=== PATIENT | male | born 1965 | race Caucasian/White ===

== ENCOUNTER → 2024-12-14 | Outpatient (CLI) | payer MEDICAID, SELFPAY ==
[2024-12-14 11:45] LABS: Basophils # (Auto) 0.0 Thou/mm3 (0.0-0.2); Basophils % (Auto) 0 % (0-2.5); Eosinophils # (Auto) 0.9 Thou/mm3 (0.0-0.5); Eosinophils % (Auto) 11 % (0-10); Hematocrit 48.0 % (41.0-53.0); Hemoglobin 16.0 g/dL (13.5-16.0); Immature Granulocytes Auto 0.06 Thou/mm3 (0.00-0.00); Lymphocytes # (Auto) 2.7 Thou/mm3 (1.0-4.8); Lymphocytes % (Auto) 36 % (10-50); Mean Corpuscular HGB Conc 33.3 g/dl (31.0-37.0); Mean Corpuscular Hemoglobin 28.3 pg (25.0-35.0); Mean Corpuscular Volume 85 fL (80-100); Monocytes # (Auto) 0.6 Thou/mm3 (0.0-0.8); Monocytes % (Auto) 7 % (0-12); Neutrophils # (Auto) 3.3 Thou/mm3 (1.8-7.7); Neutrophils % (Auto) 44 % (37-80); Nucleated Red Blood Cell # 0.00 Thou/mm3 (0.00-0.00); Nucleated Red Blood Cell % 0 /100 WBC (0); Platelet Count 142 Thou/mm3 (140-440); RDW Standard Deviation 42.7 fL (35.1-43.9); Red Blood Count 5.66 Miln/mm3 (4.50-5.90); White Blood Count 7.5 Thou/mm3 (3.8-10.6)
[2024-12-14 12:06] LABS: Alanine Aminotransferase 26 U/L (10-49); Albumin, Serum 4.6 gm/dL (3.5-5.0); Albumin/Globulin Ratio 1.7 (1.2-2.2); Alkaline Phosphatase 48 U/L (46-116); Anion Gap 10 (7-16); Aspartate Amino Transferase 21 U/L (0-34); BUN/Creatinine Ratio 18 Ratio (12-20); Bilirubin,Total 1.0 mg/dL (0.3-1.2); Blood Urea Nitrogen 14 mg/dL (9-23); Calcium 8.9 mg/dL (8.3-10.6); Calcium (Corrected) 8.9 mg/dL (8.5-10.1); Carbon Dioxide 26.4 mMol/L (20.0-31.0); Chloride 106 mMol/L (98-107); Creatinine (Component) 0.8 mg/dL (0.6-1.3); Globulin 2.7 gm/dL (2.3-3.5); Glucose 118 mg/dL (74-106); Osmolality,Calculated 284 (275-295); Potassium 4.2 mMol/L (3.4-5.1); Sodium 142 mMol/L (136-145); Total Protein 7.3 gm/dL (5.7-8.2); eGFR > 60 See Note
== END | disposition home or self-care (01) ==
LOC: COPL 11:18
PROVIDERS: PCP Family Medicine; Referring Provider Internal Medicine Hematology & Oncology; Visit Provider Internal Medicine Hematology & Oncology
DX: D72.10 Eosinophilia, unspecified (principal)
CPT/HCPCS: 36415; 80053; 85025

== ENCOUNTER 2024-12-28 13:19 | Outpatient (RCR) | payer MEDICAID, SELFPAY ==
--- NOTE | 2024-11-30 15:49 | CTCCONSULT_ITS ---
Patient: MARY EDWARD : 1965 MR#: [id number] Page 2 of 3 CONSULTATION NOTE DATE OF CONSULTATION: 11/30/2024 NAME: MARY EDWARD ACCOUNT: [id number] : 1965 AGE: 58 REFERRING PHYSICIAN: Larry King MD PRIMARY PHYSICIAN: REASON FOR VISIT: Elevated hematocrit HISTORY OF PRESENT ILLNESS: 58-year-old male comes to present with elevated hematocrit. Patient says that he is an immigrant in [place]. And before immigrating here he used to be a regular blood donor. He always noted red puffiness of his face and he is to donate blood regularly. He used to feel better when he donated and since stopping he has been feeling more fatigued and tired. 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 Do not have any diagnosis of sleep apnea.. Patient to get up in the morning tired. Patient feels fatigued and tired during the day. He also feels drowsy during the daytime. He does not take any frequent naps. He does not take any supplements for testosterone. He do not take any enhancement drugs. Patient do not notice any change in his testes. Both testes are soft and no hard masses. No history of kidney cancer in the family. 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 Tobacco Use:?5-6 cigarettes / day x 23 yrs ETOH?Use:?[employer]ia[employer] Drug?Note:?Denies Social?History?Note:?Lives?with? MEDICATIONS: 1. aspirin - 81 mg 1 tab Daily 2. atorvastatin - 40 mg 1 tab Continuously 3. glimepiride - 2 mg 1 tab Daily 4. Jardiance - 25 mg 1 tab Daily 5. metFORMIN - 1,000 mg 1 tab Twice a Day Medications Last Reconciled by Janette Suresh RN on 11/30/2024 ALLERGIES: No Known Drug Allergies REVIEW OF SYSTEMS: A complete 14-point review of systems was performed and is negative except as noted in interval history. PHYSICAL EXAMINATION: VITAL SIGNS: Temperature?98.2, B/P?116/74, Height?63?inches, Oxygen?Saturation?97% Weight?216?lbs PAIN: 0 - No pain ECOG Performance Status: 0 - Asymptomatic and fully active GENERAL APPEARANCE: Appears well, in no apparent distress, appropriately interactive. HEENT: Normocephalic, no temporal wasting, normal conjunctiva, no scleral icterus, normal hearing, lips without lesions, neck normal range of motion. CARDIOVASCULAR: Not assessed. PULMONARY: Normal respiratory effort, no respiratory distress or use of accessory muscles, speaking in full sentences, no tachypnea. EXTREMITIES: No pedal edema or cyanosis. SKIN: Normal skin appearance. NEUROLOGIC: Alert and oriented x4. PSHYCHIATRIC: Appropriate affect, mood normal, behavior normal, intact thought and speech. LABORATORY DATA: I have personally reviewed and interpreted each of the patient?s relevant lab tests, abnormal findings are below: Date ASSESSMENT/PLAN: Polycythemia Assessment: Patient presents with elevated hemoglobin and hematocrit levels. Differential diagnoses include increased testosterone levels, certain cancers, or sleep apnea due to reported snoring. 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 Plan: - Order comprehensive blood work including: - Testosterone level - JAK2 mutation analysis - Kidney function tests - Erythropoietin level - Schedule CT scan of chest, abdomen, and pelvis to evaluate for occult malignancy - Arrange sleep study to assess for sleep apnea - Schedule phlebotomy appointment with Nori - Administer IV fluids - Follow up after completion of all tests ORDERS: Order # Description [id number] Comprehensive Metabolic Panel - 12 + CBC with Auto Diff [id number] SAMIRA - 2 Mutation Quant + Erythropoieten Level + Testosterone; Total [id number] CT Scan + Chest + Abdomen and Pelvis + With W/O Contrast [id number] Therapeutic Phlebotomy, 1 Unit [id number] Follow Up 4 Week RETURN TO CLINIC: I reviewed the diagnosis, prognosis, and recommended treatment/procedure options with the patient (and/or their legal customer assistance representative), including the potential benefits, risks, side effects and alternative therapies. We also discussed the option of no treatment and the possibility of clinical trial participation, if applicable. All questions were addressed, and they demonstrated understanding. They provided informed consent to proceed with the proposed plan of care. BILLING AND COMPLIANCE: I reviewed external records from providers outside my specialty as summarized above. I spent a total of 50 minutes on this patient?s care on the day of their visit excluding time spent related to any billed procedures. This time includes time spent with the patient as well as time spent documenting in the medical record, reviewing patients records and tests, obtaining history, placing orders, communicating with other healthcare professionals, counseling the patient, family or caregiver, and/or care coordination for the diagnoses above. Electronically Signed by: Abdirizak Nolan MD T: 3:47 PM CC: PCP: Referring: Larry King This document was completed utilizing speech recognition software. Grammatical errors, random word insertions, pronoun errors, and incomplete sentences are an occasional consequence of this system due to software limitations, ambient noise, and hardware issues. Any formal questions or concerns about the content, text or information contained within the body of this dictation should be directly addressed to the provider for clarification.
[2024-12-22 13:26] LABS: Basophils # (Auto) 0.0 Thou/mm3 (0.0-0.2); Basophils % (Auto) 0 % (0-2.5); Eosinophils # (Auto) 0.8 Thou/mm3 (0.0-0.5); Eosinophils % (Auto) 12 % (0-10); Hematocrit 43.9 % (41.0-53.0); Hemoglobin 15.0 g/dL (13.5-16.0); Immature Granulocytes Auto 0.06 Thou/mm3 (0.00-0.00); Lymphocytes # (Auto) 2.3 Thou/mm3 (1.0-4.8); Lymphocytes % (Auto) 33 % (10-50); Mean Corpuscular HGB Conc 34.2 g/dl (31.0-37.0); Mean Corpuscular Hemoglobin 28.6 pg (25.0-35.0); Mean Corpuscular Volume 84 fL (80-100); Monocytes # (Auto) 0.7 Thou/mm3 (0.0-0.8); Monocytes % (Auto) 9 % (0-12); Neutrophils # (Auto) 3.2 Thou/mm3 (1.8-7.7); Neutrophils % (Auto) 45 % (37-80); Nucleated Red Blood Cell # 0.00 Thou/mm3 (0.00-0.00); Nucleated Red Blood Cell % 0 /100 WBC (0); Platelet Count 149 Thou/mm3 (140-440); RDW Standard Deviation 41.8 fL (35.1-43.9); Red Blood Count 5.25 Miln/mm3 (4.50-5.90); White Blood Count 7.2 Thou/mm3 (3.8-10.6)
[2024-12-28 14:04] LABS: Basophils # (Auto) 0.0 Thou/mm3 (0.0-0.2); Basophils % (Auto) 0 % (0-2.5); Eosinophils # (Auto) 1.0 Thou/mm3 (0.0-0.5); Eosinophils % (Auto) 10 % (0-10); Hematocrit 45.4 % (41.0-53.0); Hemoglobin 15.0 g/dL (13.5-16.0); Immature Granulocytes Auto 0.04 Thou/mm3 (0.00-0.00); Lymphocytes # (Auto) 2.9 Thou/mm3 (1.0-4.8); Lymphocytes % (Auto) 31 % (10-50); Mean Corpuscular HGB Conc 33.0 g/dl (31.0-37.0); Mean Corpuscular Hemoglobin 28.2 pg (25.0-35.0); Mean Corpuscular Volume 86 fL (80-100); Monocytes # (Auto) 0.5 Thou/mm3 (0.0-0.8); Monocytes % (Auto) 6 % (0-12); Neutrophils # (Auto) 4.8 Thou/mm3 (1.8-7.7); Neutrophils % (Auto) 52 % (37-80); Nucleated Red Blood Cell # 0.00 Thou/mm3 (0.00-0.00); Nucleated Red Blood Cell % 0 /100 WBC (0); Platelet Count 154 Thou/mm3 (140-440); RDW Standard Deviation 43.3 fL (35.1-43.9); Red Blood Count 5.31 Miln/mm3 (4.50-5.90); White Blood Count 9.2 Thou/mm3 (3.8-10.6)
== END 2024-12-29 23:59 | disposition home or self-care (01) ==
LOC: SCTC 13:19
PROVIDERS: PCP Family Medicine; Referring Provider Family Medicine; Visit Provider Internal Medicine Hematology & Oncology
DX: D75.1 Secondary polycythemia (principal)
CPT/HCPCS: 85025; 99195; 99213; G0463

== ENCOUNTER 2025-01-18 14:27 | Outpatient (RCR) | payer MEDICAID, SELFPAY ==
[2025-01-04 14:10] LABS: Basophils # (Auto) 0.0 Thou/mm3 (0.0-0.2); Basophils % (Auto) 0 % (0-2.5); Eosinophils # (Auto) 0.9 Thou/mm3 (0.0-0.5); Eosinophils % (Auto) 11 % (0-10); Hematocrit 47.1 % (41.0-53.0); Hemoglobin 15.4 g/dL (13.5-16.0); Immature Granulocytes Auto 0.04 Thou/mm3 (0.00-0.00); Lymphocytes # (Auto) 2.9 Thou/mm3 (1.0-4.8); Lymphocytes % (Auto) 36 % (10-50); Mean Corpuscular HGB Conc 32.7 g/dl (31.0-37.0); Mean Corpuscular Hemoglobin 27.9 pg (25.0-35.0); Mean Corpuscular Volume 86 fL (80-100); Monocytes # (Auto) 0.6 Thou/mm3 (0.0-0.8); Monocytes % (Auto) 8 % (0-12); Neutrophils # (Auto) 3.5 Thou/mm3 (1.8-7.7); Neutrophils % (Auto) 44 % (37-80); Nucleated Red Blood Cell # 0.00 Thou/mm3 (0.00-0.00); Nucleated Red Blood Cell % 0 /100 WBC (0); Platelet Count 159 Thou/mm3 (140-440); RDW Standard Deviation 42.0 fL (35.1-43.9); Red Blood Count 5.51 Miln/mm3 (4.50-5.90); White Blood Count 7.9 Thou/mm3 (3.8-10.6)
[2025-01-11 14:07] LABS: Basophils # (Auto) 0.0 Thou/mm3 (0.0-0.2); Basophils % (Auto) 0 % (0-2.5); Eosinophils # (Auto) 0.8 Thou/mm3 (0.0-0.5); Eosinophils % (Auto) 10 % (0-10); Hematocrit 45.0 % (41.0-53.0); Hemoglobin 14.8 g/dL (13.5-16.0); Immature Granulocytes Auto 0.02 Thou/mm3 (0.00-0.00); Lymphocytes # (Auto) 3.0 Thou/mm3 (1.0-4.8); Lymphocytes % (Auto) 37 % (10-50); Mean Corpuscular HGB Conc 32.9 g/dl (31.0-37.0); Mean Corpuscular Hemoglobin 27.7 pg (25.0-35.0); Mean Corpuscular Volume 84 fL (80-100); Monocytes # (Auto) 0.5 Thou/mm3 (0.0-0.8); Monocytes % (Auto) 7 % (0-12); Neutrophils # (Auto) 3.8 Thou/mm3 (1.8-7.7); Neutrophils % (Auto) 46 % (37-80); Nucleated Red Blood Cell # 0.00 Thou/mm3 (0.00-0.00); Nucleated Red Blood Cell % 0 /100 WBC (0); Platelet Count 133 Thou/mm3 (140-440); RDW Standard Deviation 40.7 fL (35.1-43.9); Red Blood Count 5.34 Miln/mm3 (4.50-5.90); White Blood Count 8.2 Thou/mm3 (3.8-10.6)
--- NOTE | 2025-06-05 01:59 | CTCFLWUP_ITS ---
Patient: MARY EDWARD : 1965 Page 2 of 3 FOLLOW UP NOTE DATE OF SERVICE: 01/18/2025 NAME: MARY EDWARD ACCOUNT: [id number] : 1965 AGE: 59 INTERVAL HISTORY: Doing well. Donating blood regularly now. Does not want to do sleep study or CPAP machine ONCOLOGY HISTORY: DIAGNOSIS: DATE OF DIAGNOSIS: STAGE/TNM: TREATMENT HISTORY: Care?Plan Start?Date Cycle Day Intent HISTORY OF PRESENT ILLNESS: 59-year-old male comes to present with elevated hematocrit. Patient says that he is an immigrant in [place]. And before immigrating here he used to be a regular blood donor. He always noted red puffiness of his face and he is to donate blood regularly. He used to feel better when he donated and since stopping he has been feeling more fatigued and tired. 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 Do not have any diagnosis of sleep apnea.. Patient to get up in the morning tired. Patient feels fatigued and tired during the day. He also feels drowsy during the daytime. He does not take any frequent naps. He does not take any supplements for testosterone. He do not take any enhancement drugs. Patient do not notice any change in his testes. Both testes are soft and no hard masses. No history of kidney cancer in the family. 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 Tobacco Use:?5-6 cigarettes / day x 23 yrs ETOH?Use:?[employer]ia[employer] Drug?Note:?Denies Social?History?Note:?Lives?with? MEDICATIONS: 1. aspirin - 81 mg 1 tab Daily 2. atorvastatin - 40 mg 1 tab Continuously 3. glimepiride - 2 mg 1 tab Daily 4. Jardiance - 25 mg 1 tab Daily 5. metFORMIN - 1,000 mg 1 tab Twice a Day 6. Ozempic - 1 mg/dose (2 mg/1.5 mL) As directed Medications Last Reconciled by Ale Vitale MD on 03/17/2025 ALLERGIES: No Known Drug Allergies REVIEW OF SYSTEMS: A complete 14-point review of systems was performed and is negative except as noted in interval history. PHYSICAL EXAMINATION: VITAL SIGNS: Temperature?98.5, B/P?114/71, Oxygen?Saturation?98% Weight?218?lbs (Change?since?01/11/25:?3.2?lbs) PAIN: 0 - No pain ECOG Performance Status: 0 - Asymptomatic and fully active GENERAL APPEARANCE: Appears well, in no apparent distress, appropriately interactive. HEENT: Normocephalic, no temporal wasting, normal conjunctiva, no scleral icterus, normal hearing, lips without lesions, neck normal range of motion. CARDIOVASCULAR: Not assessed. PULMONARY: Normal respiratory effort, no respiratory distress or use of accessory muscles, speaking in full sentences, no tachypnea. EXTREMITIES: No pedal edema or cyanosis. SKIN: Normal skin appearance. NEUROLOGIC: Alert and oriented x4. PSHYCHIATRIC: Appropriate affect, mood normal, behavior normal, intact thought and speech. LABORATORY DATA: I have personally reviewed and interpreted each of the patient?s relevant lab tests, abnormal findings are below: Date 01/04/25 01/11/25 02/06/25 03/06/25 ??WHITE?BLOOD?COUNT?(Thou/mm3) 7.9 8.2 7.5 7.8 ??RED?BLOOD?COUNT?(Miln/mm3) 5.51 5.34 5.27 5.16 ??HEMOGLOBIN?(gm/dl) 15.4 14.8 14.7 14.3 ??HEMATOCRIT?(%) 47.1 45.0 44.3 42.8 ??PLATELET?COUNT?(Thou/mm3) 159 133?L 143 162 ??NEUTROPHILS?%,?AUTO?(%) 44 46 46 50 ??LYMPH?%,?AUTO?(%) 36 37 37 32 ??NEUTROPHILS,?AUTO?(Thou/mm3) 3.5 3.8 3.4 3.9 ASSESSMENT/PLAN: Polycythemia Assessment: Patient presents with elevated hemoglobin and hematocrit levels. Differential diagnoses include increased testosterone levels, certain cancers, or sleep apnea due to reported snoring. 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 JAK2 mutation negative Insurance denied patient's scans. Alternative imaging was recommended as chest x-ray and ultrasound of the abdomen and pelvis. Even both the imaging modality are very poor choices but secondary to insurance will do x-ray chest and ultrasound of the abdomen - Arrange sleep study to assess for sleep apnea. Patient feels fatigued in the daytime. Patient have frequent wakening in the sleep for at nighttime. Patient naps during the day. Patient also fall asleep in the daytime - Schedule phlebotomy appointment with Nori Gallardo Administer IV fluids - Follow up after completion of all tests ORDERS: Order # Description RETURN TO CLINIC: I reviewed the diagnosis, prognosis, and recommended treatment/procedure options with the patient (and/or their legal signs sales representative), including the potential benefits, risks, side effects and alternative therapies. We also discussed the option of no treatment and the possibility of clinical trial participation, if applicable. All questions were addressed, and they demonstrated understanding. They provided informed consent to proceed with the proposed plan of care. BILLING AND COMPLIANCE: I reviewed external records from providers outside my specialty as summarized above. I spent a total of 50 minutes on this patient?s care on the day of their visit excluding time spent related to any billed procedures. This time includes time spent with the patient as well as time spent documenting in the medical record, reviewing patients records and tests, obtaining history, placing orders, communicating with other healthcare professionals, counseling the patient, family or caregiver, and/or care coordination for the diagnoses above. Electronically Signed by: {Object.Sanct_ID*PnP.NameFL@M}, {Object.Sanct_ID*PnP.Suffix@U} D: {Object.Sanct_Date} T: {Object.Sanct_Time} CC: PCP: Referring: Ben Cuevas This document was completed utilizing speech recognition software. Grammatical errors, random word insertions, pronoun errors, and incomplete sentences are an occasional consequence of this system due to software limitations, ambient noise, and hardware issues. Any formal questions or concerns about the content, text or information contained within the body of this dictation should be directly addressed to the provider for clarification.
== END 2025-01-29 23:59 | disposition home or self-care (01) ==
LOC: SCTC 14:27
PROVIDERS: PCP Family Medicine; Referring Provider Family Medicine; Visit Provider Internal Medicine Hematology & Oncology
DX: D75.1 Secondary polycythemia (principal)
CPT/HCPCS: 36415; 85025; 99212; G0463

== ENCOUNTER → 2025-01-20 | Outpatient (CLI) | payer MEDICAID, SELFPAY ==
--- NOTE | 2025-01-20 10:29 | XR_ITS ---
Examination: PA lateral chest 2 views TECHNIQUE: Upright PA lateral chest 2 views Date and time: January 20, 2025 1038 hours INDICATIONS: History chest mass FINDINGS: Mild prominence left ventricle. No mediastinal lymphadenopathy. No pneumonia or pulmonary edema. No pulmonary nodules depicted. Moderate osteopenia. IMPRESSION: No mediastinal lymphadenopathy. No pneumonia pulmonary edema pleural disease or pulmonary mass lesion
== END | disposition home or self-care (01) ==
PROVIDERS: PCP Family Medicine; Referring Provider Internal Medicine Hematology & Oncology; Visit Provider Internal Medicine Hematology & Oncology
DX: D72.10 Eosinophilia, unspecified (principal)
CPT/HCPCS: 71046

== ENCOUNTER → 2025-02-06 | Outpatient (CLI) | payer MEDICAID, SELFPAY ==
[2025-02-06 12:02] LABS: Basophils # (Auto) 0.0 Thou/mm3 (0.0-0.2); Basophils % (Auto) 1 % (0-2.5); Eosinophils # (Auto) 0.7 Thou/mm3 (0.0-0.5); Eosinophils % (Auto) 9 % (0-10); Hematocrit 44.3 % (41.0-53.0); Hemoglobin 14.7 g/dL (13.5-16.0); Immature Granulocytes Auto 0.05 Thou/mm3 (0.00-0.00); Lymphocytes # (Auto) 2.8 Thou/mm3 (1.0-4.8); Lymphocytes % (Auto) 37 % (10-50); Mean Corpuscular HGB Conc 33.2 g/dl (31.0-37.0); Mean Corpuscular Hemoglobin 27.9 pg (25.0-35.0); Mean Corpuscular Volume 84 fL (80-100); Monocytes # (Auto) 0.6 Thou/mm3 (0.0-0.8); Monocytes % (Auto) 8 % (0-12); Neutrophils # (Auto) 3.4 Thou/mm3 (1.8-7.7); Neutrophils % (Auto) 46 % (37-80); Nucleated Red Blood Cell # 0.00 Thou/mm3 (0.00-0.00); Nucleated Red Blood Cell % 0 /100 WBC (0); Platelet Count 143 Thou/mm3 (140-440); RDW Standard Deviation 40.9 fL (35.1-43.9); Red Blood Count 5.27 Miln/mm3 (4.50-5.90); White Blood Count 7.5 Thou/mm3 (3.8-10.6)
== END | disposition home or self-care (01) ==
PROVIDERS: PCP Family Medicine; Referring Provider Internal Medicine Hematology & Oncology; Visit Provider Internal Medicine Hematology & Oncology
DX: D72.10 Eosinophilia, unspecified (principal)
CPT/HCPCS: 36415; 85025

== ENCOUNTER → 2025-02-27 | Outpatient (CLI) | payer MEDICAID, SELFPAY ==
--- NOTE | 2025-02-27 13:00 | XR_ITS ---
Examination: Abdomen sonogram, complete Date and time of exam: February 27, 2025, 1325 hours INDICATIONS:: evaluate for cancer, eosinophilia on laboratory examination 02/06/2025. Technique: Multiple real-time grayscale transabdominal sonographic images of the abdomen have been obtained. Findings: Normal gallbladder. Common bile duct 0.6 cm no stones Pancreatic head 2.4 cm Aorta not enlarged. Liver 18.7 cm fatty infiltration no focal liver lesions Normal hepatopedal portal venous flow Patent IVC Right kidney 13.6 cm renal cortex 2.1 cm Left kidney 13.7 cm cortex 2.0 cm Mild renal parenchymal scar formation Spleen 8.9 cm IMPRESSION: Normal gallbladder No common bile duct stones Moderate hepatomegaly fatty infiltration no focal liver lesions
--- NOTE | 2025-02-27 13:00 | XR_ITS ---
Examination: Pelvic ultrasound, transabdominal, complete Technique: Transabdominal ultrasound of the pelvis performed using grayscale imaging Date and time of exam: February 27, 2025, 1316 hours INDICATIONS: Abnormal laboratory results on examination this week FINDINGS: Prostate 3.4 x 3.9 x 4.0 cm 0.20 6.89 cc no prostate nodules No bladder mass or bladder calculi, contracted bladder IMPRESSION: No prostatomegaly No prostate nodules No pelvic mass Contracted urinary bladder
== END | disposition home or self-care (01) ==
PROVIDERS: PCP Family Medicine; Referring Provider Internal Medicine Hematology & Oncology; Visit Provider Internal Medicine Hematology & Oncology
DX: N32.89 Other specified disorders of bladder (principal); K76.0 Fatty (change of) liver, not elsewhere classified
CPT/HCPCS: 76700; 76856

== ENCOUNTER 2025-03-16 13:13 | Outpatient (RCR) | payer MEDICAID, SELFPAY ==
[2025-03-06 13:23] LABS: Basophils # (Auto) 0.0 Thou/mm3 (0.0-0.2); Basophils % (Auto) 1 % (0-2.5); Eosinophils # (Auto) 0.7 Thou/mm3 (0.0-0.5); Eosinophils % (Auto) 10 % (0-10); Hematocrit 42.8 % (41.0-53.0); Hemoglobin 14.3 g/dL (13.5-16.0); Immature Granulocytes Auto 0.04 Thou/mm3 (0.00-0.00); Lymphocytes # (Auto) 2.5 Thou/mm3 (1.0-4.8); Lymphocytes % (Auto) 32 % (10-50); Mean Corpuscular HGB Conc 33.4 g/dl (31.0-37.0); Mean Corpuscular Hemoglobin 27.7 pg (25.0-35.0); Mean Corpuscular Volume 83 fL (80-100); Monocytes # (Auto) 0.6 Thou/mm3 (0.0-0.8); Monocytes % (Auto) 8 % (0-12); Neutrophils # (Auto) 3.9 Thou/mm3 (1.8-7.7); Neutrophils % (Auto) 50 % (37-80); Nucleated Red Blood Cell # 0.00 Thou/mm3 (0.00-0.00); Nucleated Red Blood Cell % 0 /100 WBC (0); Platelet Count 162 Thou/mm3 (140-440); RDW Standard Deviation 40.9 fL (35.1-43.9); Red Blood Count 5.16 Miln/mm3 (4.50-5.90); White Blood Count 7.8 Thou/mm3 (3.8-10.6)
--- NOTE | 2025-03-27 01:52 | CTCFLWUP_ITS ---
Patient: MARY EDWARD : 1965 Page 2 of 3 FOLLOW UP NOTE DATE OF SERVICE: 03/16/2025 NAME: MARY EDWARD ACCOUNT: [id number] : 1965 AGE: 59 INTERVAL HISTORY: Patient is doing well.. Donating blood regularly now. Does not want to do sleep study or CPAP machine HISTORY OF PRESENT ILLNESS: 59-year-old male comes to present with elevated hematocrit. Patient says that he is an immigrant in [place]. And before immigrating here he used to be a regular blood donor. He always noted red puffiness of his face and he is to donate blood regularly. He used to feel better when he donated and since stopping he has been feeling more fatigued and tired. 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 Do not have any diagnosis of sleep apnea.. Patient to get up in the morning tired. Patient feels fatigued and tired during the day. He also feels drowsy during the daytime. He does not take any frequent naps. He does not take any supplements for testosterone. He do not take any enhancement drugs. Patient do not notice any change in his testes. Both testes are soft and no hard masses. No history of kidney cancer in the family. 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 Tobacco Use:?5-6 cigarettes / day x 23 yrs ETOH?Use:?[employer]ia[employer] Drug?Note:?Denies Social?History?Note:?Lives?with? MEDICATIONS: 1. aspirin - 81 mg 1 tab Daily 2. atorvastatin - 40 mg 1 tab Continuously 3. glimepiride - 2 mg 1 tab Daily 4. Jardiance - 25 mg 1 tab Daily 5. metFORMIN - 1,000 mg 1 tab Twice a Day 6. Ozempic - 1 mg/dose (2 mg/1.5 mL) As directed Medications Last Reconciled by Ale Vitale MD on 03/17/2025 ALLERGIES: No Known Drug Allergies REVIEW OF SYSTEMS: A complete 14-point review of systems was performed and is negative except as noted in interval history. PHYSICAL EXAMINATION: VITAL SIGNS: Temperature?97.8, B/P?112/72, Oxygen?Saturation?97% Weight?213?lbs (Change?since?03/06/25:?2?lbs) PAIN: 0 - No pain ECOG Performance Status: 0 - Asymptomatic and fully active GENERAL APPEARANCE: Appears well, in no apparent distress, appropriately interactive. HEENT: Normocephalic, no temporal wasting, normal conjunctiva, no scleral icterus, normal hearing, lips without lesions, neck normal range of motion. CARDIOVASCULAR: Not assessed. PULMONARY: Normal respiratory effort, no respiratory distress or use of accessory muscles, speaking in full sentences, no tachypnea. EXTREMITIES: No pedal edema or cyanosis. SKIN: Normal skin appearance. NEUROLOGIC: Alert and oriented x4. PSHYCHIATRIC: Appropriate affect, mood normal, behavior normal, intact thought and speech. LABORATORY DATA: I have personally reviewed and interpreted each of the patient?s relevant lab tests, abnormal findings are below: Date 01/04/25 01/11/25 02/06/25 03/06/25 ??WHITE?BLOOD?COUNT?(Thou/mm3) 7.9 8.2 7.5 7.8 ??RED?BLOOD?COUNT?(Miln/mm3) 5.51 5.34 5.27 5.16 ??HEMOGLOBIN?(gm/dl) 15.4 14.8 14.7 14.3 ??HEMATOCRIT?(%) 47.1 45.0 44.3 42.8 ??PLATELET?COUNT?(Thou/mm3) 159 133?L 143 162 ??NEUTROPHILS?%,?AUTO?(%) 44 46 46 50 ??LYMPH?%,?AUTO?(%) 36 37 37 32 ??NEUTROPHILS,?AUTO?(Thou/mm3) 3.5 3.8 3.4 3.9 ASSESSMENT/PLAN: Polycythemia Assessment: Patient presents with elevated hemoglobin and hematocrit levels. Differential diagnoses include increased testosterone levels, certain cancers, or sleep apnea due to reported snoring. 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 JAK2 mutation negative Insurance denied patient's scans. Alternative imaging was recommended as chest x-ray and ultrasound of the abdomen and pelvis. Even both the imaging modality are very poor choices but secondary to insurance will do x-ray chest and ultrasound of the abdomen - Patient have not completed sleep study. Patient feels fatigued in the daytime. Patient have frequent wakening in the sleep for at nighttime. Patient naps during the day. Patient also fall asleep in the daytime - Continue phlebotomy to keep hematocrit below 45 ORDERS: Order # Description [id number] MD Follow Up 4 Month RETURN TO CLINIC: I reviewed the diagnosis, prognosis, and recommended treatment/procedure options with the patient (and/or their legal artist's representative), including the potential benefits, risks, side effects and alternative therapies. We also discussed the option of no treatment and the possibility of clinical trial participation, if applicable. All questions were addressed, and they demonstrated understanding. They provided informed consent to proceed with the proposed plan of care. BILLING AND COMPLIANCE: I reviewed external records from providers outside my specialty as summarized above. I spent a total of 50 minutes on this patient?s care on the day of their visit excluding time spent related to any billed procedures. This time includes time spent with the patient as well as time spent documenting in the medical record, reviewing patients records and tests, obtaining history, placing orders, communicating with other healthcare professionals, counseling the patient, family or caregiver, and/or care coordination for the diagnoses above. Electronically Signed by: Abdirizak Nolan MD T: 1:50 AM CC: PCP: Referring: Ben Cuevas This document was completed utilizing speech recognition software. Grammatical errors, random word insertions, pronoun errors, and incomplete sentences are an occasional consequence of this system due to software limitations, ambient noise, and hardware issues. Any formal questions or concerns about the content, text or information contained within the body of this dictation should be directly addressed to the provider for clarification.
== END 2025-03-31 23:59 | disposition home or self-care (01) ==
LOC: SCTC 13:13
PROVIDERS: PCP Family Medicine; Referring Provider Family Medicine; Visit Provider Internal Medicine Hematology & Oncology
DX: D75.1 Secondary polycythemia (principal)
CPT/HCPCS: 36415; 85025; 96523; 99212; G0463

== ENCOUNTER 2025-05-23 06:40 | Day surgery (SDC) | payer MEDICAID, SELFPAY ==
[2025-05-22 14:45] VITALS: BMI 36.0
[2025-05-23] VITALS (10 sets, daily range): BP systolic 105–137; BP diastolic 76–89; PULSE 65–72; RESP 15–20; TEMP 36.6–37.1; O2SAT 93–99; BMI 36.6
[2025-05-23] MEDS: SODIUM CHLORIDE 0.9% 500 ML 500 ML 125 ML IV (07:24)
[2025-05-23] MEDS: fentaNYL CIT INJ 50 mCg/ML AMP 2ML (ASD USE ONLY) IVP (07:25)
[2025-05-23] MEDS: MIDAZOLAM INJ 1 MG/ML VIAL 2 ML (ASD USE ONLY) 2 MG IVP (07:27)
[2025-05-23] MEDS: SIMETHICONE 40 MG/0.6 ML ORAL SYRINGE PO (07:28)
== END 2025-05-23 08:20 | disposition home or self-care (01) ==
PROVIDERS: PCP Family Medicine; Referring Provider Surgery; Visit Provider Surgery
PROC: 0DBE8ZX Excision of Large Intestine, Via Natural or Artificial Opening Endoscopic, Diagnostic (ICD-10-PCS; CPT 45380; principal; 2025-05-23 08:00)
DX: Z12.11 Encounter for screening for malignant neoplasm of colon (principal); D12.0 Benign neoplasm of cecum; D12.3 Benign neoplasm of transverse colon; K64.1 Second degree hemorrhoids; K57.30 Diverticulosis of large intestine without perforation or abscess without bleeding; E11.9 Type 2 diabetes mellitus without complications; E78.00 Pure hypercholesterolemia, unspecified; F17.200 Nicotine dependence, unspecified, uncomplicated; Z79.84 Long term (current) use of oral hypoglycemic drugs; Z79.899 Other long term (current) drug therapy
CPT/HCPCS: 45385; 45380; A4649; J1200; J2250; J3010; J7999; A9270